=== PATIENT | male | born 1970 | race Caucasian/White ===

== ENCOUNTER 2022-04-13 13:36 | Outpatient (CLI) | payer BC, SELFPAY ==
[2022-04-13 18:08] LABS: Uric Acid* 8.4 mg/dL (2.2-8.4)
== END 2022-04-13 13:37 | disposition home or self-care (01) ==
LOC: LONREF 13:37
PROVIDERS: PCP Family Medicine; Visit Provider Family Medicine
DX: M79.675 Pain in left toe(s) (principal)
CPT/HCPCS: 84550